=== PATIENT | female | born 1960 | race Caucasian/White ===

== ENCOUNTER 2019-09-10 06:49 | Emergency (ER) | payer MEDICAID, OTHER ==
[~2019-09-10] VITALS: Ht 175.3 cm; Wt 86.4 kg
[2019-09-10] MEDS ORDERED: LIDOcaine 1% W/epiNEPHrine 1:100,000 20ml vial SQ ONE (07:05)
[2019-09-10] MEDS ORDERED: TETanus/Pertussis (Acell)/Diphther VAC/PF (Tdap-Adult) 0.5ml syringe IMVAC ONE (07:05)
[2019-09-10] MEDS ORDERED: acetaminophen 325mg tablet PO ONE ×2 (07:05)
[2019-09-10] MEDS ORDERED: amox tr/potassium clavulanate 875/125mg TAB PO ONE (08:05)
[2019-09-10] MEDS ORDERED: bacitracin 15gm ointment TP ONE (08:15)
[2019-09-10] MEDS ORDERED: AMOX-580 PO (08:17)
[2019-09-10 08:31] VITALS: BP 162/96
== END 2019-09-10 08:32 | disposition home or self-care (01) ==
LOC: ER 06:50
DX: S61.412A Laceration without foreign body of left hand, initial encounter (principal); S61.111A Laceration without foreign body of right thumb with damage to nail, initial encounter; S51.812A Laceration without foreign body of left forearm, initial encounter; S61.213A Laceration without foreign body of left middle finger without damage to nail, initial encounter; S61.217A Laceration without foreign body of left little finger without damage to nail, initial encounter; I10 Essential (primary) hypertension; E11.9 Type 2 diabetes mellitus without complications; F41.9 Anxiety disorder, unspecified; F14.90 Cocaine use, unspecified, uncomplicated; Z60.2 Problems related to living alone; Z79.899 Other long term (current) drug therapy; W54.0XXA Bitten by dog, initial encounter; Y93.89 Activity, other specified; Y92.89 Other specified places as the place of occurrence of the external cause; Y99.8 Other external cause status
CPT/HCPCS: 12001; 73130; 90471; 90715; 99284